=== PATIENT | female | born 1950 | race African-American/Black ===

== ENCOUNTER 2020-11-15 16:00 | Emergency (ER) | payer OTHER, MEDICARE ==
[~2020-11-15] VITALS: Ht 149.9 cm; Wt 73.0 kg
[2020-11-15 16:40] VITALS: BP 159/73
== END 2020-11-15 19:26 | disposition home or self-care (01) ==
LOC: ER 16:00
DX: R55 Syncope and collapse (principal); R53.1 Weakness; F17.200 Nicotine dependence, unspecified, uncomplicated; I10 Essential (primary) hypertension
CPT/HCPCS: 99283; Z7610